=== PATIENT | male | born 1985 | race Caucasian/White ===

== ENCOUNTER → 2021-06-05 | Outpatient (CLI) | payer OTHER | LOC: US 09:17 → KOH-I 16:00 | DX: I71.4 Abdominal aortic aneurysm, without rupture (principal) | CPT/HCPCS: 93979 ==

== ENCOUNTER 2021-07-27 02:08 | Inpatient (IN) | payer OTHER ==
[~2021-07-27] VITALS: Ht 185.4 cm; Wt 92.6 kg
[2021-07-27 02:42] LABS: HEMOGLOBIN 10.5 gm/dl (14.0-17.5); RED BLOOD COUNT 3.53 M/UL (4.20-5.50); WHITE BLOOD COUNT 11.4 K/UL (4.5-11.0)
[2021-07-27 03:26] LABS: BUN/CREATININE RATIO 16 (0-10)
[2021-07-27 11:34] LABS: HEMOGLOBIN 8.6 gm/dl (14.0-17.5); WHITE BLOOD COUNT 9.5 K/UL (4.5-11.0)
[2021-07-27 11:37] LABS: RED BLOOD COUNT 2.82 M/UL (4.20-5.50)
[2021-07-27] MEDS ORDERED: GABAPENTIN600 MG PO (11:47)
[2021-07-27] MEDS ORDERED: VRAYLAR1.5 MG PO (11:48)
[2021-07-27] MEDS ORDERED: TRAZODONE HCL100 MG PO (11:48)
[2021-07-27] MEDS ORDERED: VISTARIL50 MG PO (11:49)
[2021-07-27] MEDS ORDERED: BUPROPION HCL150 M1 PO (11:49)
[2021-07-27 11:57] LABS: BUN/CREATININE RATIO 28 (0-10)
[2021-07-27 20:13] LABS: HEMOGLOBIN 9.8 gm/dl (14.0-17.5)
[2021-07-28 04:08] LABS: HEMOGLOBIN 9.5 gm/dl (14.0-17.5); WHITE BLOOD COUNT 8.6 K/UL (4.5-11.0)
[2021-07-28 04:12] LABS: RED BLOOD COUNT 3.11 M/UL (4.20-5.50)
[2021-07-28 05:10] LABS: BUN/CREATININE RATIO 20 (0-10)
[2021-07-28 08:45] LABS: ACINETOBACTER BAUMANNII Not Detected (Negative); CANDIDA ALBICANS Not Detected (Negative); CANDIDA KRUSEI Not Detected (Negative); ENTEROCOCCUS Not Detected (Negative); ESCHERICHIA COLI Not Detected (Negative); HAEMOPHILUS INFLUENZAE Not Detected (Negative); KLEBSIELLA OXYTOCA Not Detected (Negative); KLEBSIELLA PNEUMONIAE Not Detected (Negative); KPC-CARBAPENEM-RESISTANCE GENE Not Detected (Negative); PROTEUS Not Detected (Negative); PSEUDOMONAS AERUGINOSA Not Detected (Negative); SERRATIA MARCESANS Not Detected (Negative); STAPHYLOCOCCUS Not Detected (Negative); STAPHYLOCOCCUS AUREUS Not Detected (Negative); STREP AGALACTIAE (GROUP B) Not Detected (Negative); STREP PYOGENES (GROUP A) Not Detected (Negative); STREPTOCOCCUS Not Detected (Negative); mecA (METHICILLIN RESIST GENE Not Detected (Negative); vanA/B (VANCOMYCIN RESIST GENE Not Detected (Negative)
[2021-07-28 08:46] LABS: CANDIDA TROPICALIS Not Detected (Negative)
--- NOTE | 2021-07-28 12:37 | NUR ---
1100 - PT C/O BACK PAIN. STATES IT'S CHRONIC BUT EXACERBATED BY RECENT FALL. NOTIFIED. TYLENOL GIVEN WITH SCHEDULED NEURONTIN. PT STATES THAT WILL NOT HELP WITH PAIN. QUESTIONING PROCESS OF SIGNING AMA. STATES HE HAS 10 KIDS AT HOME AND NEEDS TO GET HOME IF WE AREN'T GOING TO GIVE HIM MORPHINE FOR PAIN. REQUEST THAT IV FLUIDS - NS, PROTONIX, PHOSPHATES - BE STOPPED. NOTIFIED. 1215 - PT UP TO RESTROOM. VERY LARGE BLOODY BM NOTED IN TOILET. PT STILL REFUSING IV FLUIDS / MEDS. CONTINUE TO REQUEST IV PAIN MEDICATIONS. DR JONES ON FLOOR AND SAW PT. STAFF CALLED IN TO DO EGD TODAY. PT AWARE. SPOKE WITH DR GARZA RE: PAIN MED. STATES PT WILL BE GOING FOR EGD AND WILL BE RECEIVING MEDICATIONS AT THAT TIME. DR JONES STATES DR GARZA WILL NEED TO ORDER PAIN MEDICATIONS. PT MADE AWARE OF RECEIVING MEDS IN SCOPE.
--- NOTE | 2021-07-28 14:15 | NUR ---
PT BACK FROM EGD. ALERT AND ORIENTED X 3, DEMANDING PAIN MEDICATIONS AND FOOD. EXPLAINED TO HIM THAT HE COULD NOT HAVE ANYTHING PO X 30 MINUTES DUE TO NUMBING OF HIS THROAT. INFORMED DR GARZA OF RETURN TO FLOOR AND REQUEST FOR PAIN MEDS. PATIENT AWARE.
--- NOTE | 2021-07-28 16:40 | NUR ---
1500 - PT REQUESTING PAIN MEDICATION. OFFERED LIDOCAINE PATCH ORDERED BY MD AND PT REFUSED. REQUESTING IV PAIN MEDS. MD ON FLOOR AND MADE AWARE. LONG CONVERSATION BETWEEN MD AND PT. IMAGING STUDIES ORDERED. 1630 - CT READY FOR PATIENT. PT REFUSES TO GO VIA WC. STATES HE CAN NOT SIT UP IN CHAIR. PT HAS BEEN SLEEPING SOUNDLY SINCE CONVERSATION WITH MD. PAIN MEDS GIVEN SINCE PT IS AWAKE. STILL REFUSES TO GO VIA WC. PT TAKEN VIA BED TO CT
[2021-07-29 08:42] LABS: HEMOGLOBIN 8.3 gm/dl (14.0-17.5)
[2021-07-29 08:52] LABS: RED BLOOD COUNT 2.71 M/UL (4.20-5.50)
[2021-07-29 09:19] LABS: BUN/CREATININE RATIO 11 (0-10)
--- NOTE | 2021-07-29 16:11 | NUR ---
DR. DELGADO CALLED AND REQUEST N.O BE PUT IN FOR CT LEFT SHOULDER
[2021-07-30 03:38] LABS: HEMOGLOBIN 8.3 gm/dl (14.0-17.5); RED BLOOD COUNT 2.74 M/UL (4.20-5.50); WHITE BLOOD COUNT 5.8 K/UL (4.5-11.0)
[2021-07-30 04:07] LABS: BUN/CREATININE RATIO 6 (0-10)
[2021-07-30] MEDS ORDERED: PROTONIX 40 MG40 M1 PO (13:25)
[2021-07-30] MEDS ORDERED: THERAGRAN M TAB1 EA PO (13:25)
[2021-07-30] MEDS ORDERED: LIBRIUM CAP 1010 MG PO (13:25)
[2021-07-30] MEDS ORDERED: FERROUS GLUCON324 M1 PO (13:27)
== END 2021-07-30 16:36 | disposition home or self-care (01) | DRG 368 ==
LOC: ER1 02:08 → PROG CARE 06:28 → CDU 06:28 → PROG CARE 16:25
PROVIDERS: Emergency Medicine; Internal Medicine; ADMIT Internal Medicine
PROC: HZ2ZZZZ Detoxification Services for Substance Abuse Treatment (ICD-10-PCS; principal; 2021-07-27)
PROC: 30233N1 Transfusion of Nonautologous Red Blood Cells into Peripheral Vein, Percutaneous Approach (ICD-10-PCS; 2021-07-27)
PROC: 0DJ08ZZ Inspection of Upper Intestinal Tract, Via Natural or Artificial Opening Endoscopic (ICD-10-PCS; 2021-07-28)
DX: K21.01 Gastro-esophageal reflux disease with esophagitis, with bleeding (principal); K22.6 Gastro-esophageal laceration-hemorrhage syndrome; D62 Acute posthemorrhagic anemia; E87.2 Acidosis; F10.239 Alcohol dependence with withdrawal, unspecified; F31.9 Bipolar disorder, unspecified; M25.512 Pain in left shoulder; F41.9 Anxiety disorder, unspecified; F19.10 Other psychoactive substance abuse, uncomplicated; E86.0 Dehydration; F17.210 Nicotine dependence, cigarettes, uncomplicated; G89.4 Chronic pain syndrome; W01.0XXA Fall on same level from slipping, tripping and stumbling without subsequent striking against object, initial encounter; Z88.8 Allergy status to other drugs, medicaments and biological substances; Z79.899 Other long term (current) drug therapy; Z79.82 Long term (current) use of aspirin; J02.9 Acute pharyngitis, unspecified
CPT/HCPCS: 36415; 70450; 70490; 71045; 72125; 72131; 72192; 73030; 73200; 80053; 80307; 81001; 82140; 83605; 83690; 83735; 84100; 85014; 85018; 85025; 85027; 85610; 85730; 86850; 86900; 86901; 86920; 87040; 87086; 87150; 96374; 99285; C9113; G0480; J2270; J2405; J2704; J3411; J3475; J7030; J7040; P9016; Q0177; U0002

== ENCOUNTER 2021-09-27 07:52 | Emergency (ER) | payer OTHER ==
[~2021-09-27 07:52] MED LIST: ALPRAZOLAM1 MG PO; BUPROPION HCL150 M1 PO; FERROUS GLUCON324 M1 PO; GABAPENTIN600 MG PO; HYDROCODON-ACE1 EAC2 PO; IBU600 MG PO; LIBRIUM CAP 1010 MG PO; OMEPRAZOLE20 M1 PO; PROTONIX 40 MG40 M1 PO; THERAGRAN M TAB1 EA PO; TRAZODONE HCL100 MG PO; VALIUM10 MG PO; VISTARIL50 MG PO; VRAYLAR1.5 MG PO
[2021-09-27] MEDS ORDERED: NAPROSYN500 MG PO (09:53)
== END 2021-09-27 10:30 | disposition home or self-care (01) ==
LOC: ER1 07:52
DX: S16.1XXA Strain of muscle, fascia and tendon at neck level, initial encounter (principal); S00.83XA Contusion of other part of head, initial encounter; S60.222A Contusion of left hand, initial encounter; S60.221A Contusion of right hand, initial encounter; S20.212A Contusion of left front wall of thorax, initial encounter; S20.211A Contusion of right front wall of thorax, initial encounter; S10.91XA Abrasion of unspecified part of neck, initial encounter; S49.92XA Unspecified injury of left shoulder and upper arm, initial encounter; F17.200 Nicotine dependence, unspecified, uncomplicated; Y04.2XXA Assault by strike against or bumped into by another person, initial encounter
CPT/HCPCS: 70450; 70486; 71046; 72125; 72170; 73030; 73130; 99284

== ENCOUNTER 2021-10-11 20:52 | Emergency (ER) | payer OTHER ==
[~2021-10-11 20:52] MED LIST changes: +NAPROSYN500 MG PO
[2021-10-11 21:18] LABS: HEMOGLOBIN 14.6 gm/dl (14.0-17.5); RED BLOOD COUNT 5.31 M/UL (4.20-5.50); WHITE BLOOD COUNT 7.5 K/UL (4.5-11.0)
[2021-10-11 21:55] LABS: BUN/CREATININE RATIO 11 (0-10)
== END 2021-10-12 05:00 | disposition home or self-care (01) ==
LOC: ER1 20:52
PROVIDERS: Family Medicine
DX: R40.0 Somnolence (principal); F10.10 Alcohol abuse, uncomplicated; Z20.822 Contact with and (suspected) exposure to COVID-19
CPT/HCPCS: 70450; 71045; 80053; 80307; 82550; 82553; 83605; 83735; 83874; 84484; 85025; 93005; 99285; G0480; J2310; U0002

== ENCOUNTER 2021-10-18 00:15 | Emergency (ER) | payer OTHER ==
[2021-10-18 01:32] LABS: BUN/CREATININE RATIO 12 (0-10)
== END 2021-10-18 08:04 | disposition home or self-care (01) ==
LOC: ER1 00:15
PROVIDERS: Emergency Medicine
DX: F41.0 Panic disorder [episodic paroxysmal anxiety] (principal); M25.512 Pain in left shoulder; Z20.822 Contact with and (suspected) exposure to COVID-19
CPT/HCPCS: 0240U; 71045; 80048; 82550; 82553; 83735; 83874; 84484; 93005; 96374; 96375; 99285; J1885; J2060; Q0177

== ENCOUNTER 2021-10-18 08:13 | Day surgery (SDC) | payer OTHER ==
[~2021-10-18] VITALS: Ht 185.4 cm; Wt 90.7 kg
--- NOTE | 2021-10-19 13:31 | NUR ---
Went over discharge instructions with patient prior to discharge. Patient expressed understanding at this time.
== END 2021-10-19 13:25 | disposition home or self-care (01) ==
LOC: OR 08:13 → M/S 17:41 → OR 10-19 13:25
DX: M25.312 Other instability, left shoulder (principal); M85.812 Other specified disorders of bone density and structure, left shoulder; S43.492A Other sprain of left shoulder joint, initial encounter; U07.1 COVID-19; F10.11 Alcohol abuse, in remission; F11.11 Opioid abuse, in remission; F14.11 Cocaine abuse, in remission; X58.XXXA Exposure to other specified factors, initial encounter; Z98.890 Other specified postprocedural states
CPT/HCPCS: C1713; J0690; J1100; J1170; J1885; J2250; J2270; J2370; J2405; J2704; J2710; J2795; J7120; Q0177